=== PATIENT | male | born 1945 | race Caucasian/White ===

== ENCOUNTER 2021-02-09 00:52 | Day surgery (SDC) | payer MEDICARE, SELFPAY ==
[2021-01-22 14:52] VITALS: BMI 29.0
--- NOTE | 2021-02-06 18:28 | P.PNAN_ITS ---
Anes - Initial Pre Proc Eval Procedure: Operation Date: 02/09/21 11:00 Proposed Procedures p Screening Colonoscopy - Luis Sherwood MD Date/Time: 02/06/21 18:28 Surgeon: Luis Sherwood MD Pre Op Diagnosis: hx of colon polyps Patient Data Age: 75 Gender: M Height: 1.78 m Weight: 91.8 kg Allergies Allergy/AdvReac Type Severity Reaction Status Date / Time ROHITH Inhibitors Allergy Unknown Swelling Verified 02/09/21 09:54 of Lip/Tongue/Throat Home Medications Medication Instructions Recorded Confirmed Type amlodipine 10 mg PO DAILY 01/22/21 01/22/21 History aspirin 81 mg PO DAILY 01/22/21 01/22/21 History atorvastatin 20 mg PO DAILY 01/22/21 01/22/21 History carvedilol 6.25 mg PO DAILY 01/22/21 01/22/21 History carvedilol 12.5 mg PO HS 01/22/21 01/22/21 History hydrochlorothiazide 12.5 mg PO DAILY 01/22/21 01/22/21 History lorazepam 0.5 mg PO TID PRN 01/22/21 01/22/21 History omeprazole 20 mg PO DAILY 01/22/21 01/22/21 History Patient hx anesthesia problems: none Family hx anesthesia problems: none Results Review: All pre-operative results and documents have been reviewed as part of the pre-operative evaluation. [facility] Past Medical History Medical History (Updated 02/06/21 @ 18:29 by Segundo Álvarez DO) Anxiety Diabetes type 2, controlled GERD (gastroesophageal reflux disease) Hyperlipidemia Hypertension Surgical History Surgical History (Updated 02/06/21 @ 18:29 by Segundo Álvarez DO) History of cholecystectomy History of prostatectomy History of tonsillectomy Social History Social History Smokeless tobacco user: chewing tobacco Substance use type: does not use Living arrangements: with family Spiritual care concerns: No Anes - Eval Final PreProcedure Day of Procedure 02/06/21 18:28 Patient weight: overweight Heart: regular rate and rhythm Lungs: clear to auscultation and normal air movement Airway: Mallampati scale class II Neurological: alert and oriented Last oral intake: >/= 8 hours ASA classification: III Emergent: no Anesthetic plan: proceed Anesthesia type and monitoring: general GIVS and standard monitoring Results Review: All pre-operative results and documents have been reviewed as part of the pre-operative evaluation. Informed Consent: The patient's anesthetic plan and its attendant risks and benefits were discussed with the patient/family/POA. Questions were solicited and answers provided to the satisfaction of the patient/family/POA.
[2021-02-09 09:56] VITALS: BP 153/78; PULSE 47; RESP 18; TEMP 36.1; O2SAT 99; BMI 28.8
[2021-02-09 10:09] LABS: Glucose Point of Care 102 mg/dl (65-105)
[2021-02-09] MEDS: LACTATED RINGERS 1,000 ML 150 ML IV CONT (10:09)
--- NOTE | 2021-02-09 10:25 | PM.HPGS ---
History of Present Illness History of Present Illness Consent: Risks, benefits, and alternatives have been discussed and questions answered. Patient agrees to proceed with procedure. Chief complaint: hx of colon polyps Narrative: Marcial Gardner is a 75 year old male with a history of colon polyps here for colon cancer screening Review of Systems Review of Systems: All systems reviewed & are unremarkable except as noted in HPI and below PMFSH Past Medical History Medical History Anxiety Diabetes type 2, controlled GERD (gastroesophageal reflux disease) Hyperlipidemia Hypertension Surgical History Surgical History History of cholecystectomy History of prostatectomy History of tonsillectomy Social History Social History Smokeless tobacco user: chewing tobacco Substance use type: does not use Living arrangements: with family Spiritual care concerns: No Meds Home Medications and Allergies Home Medications Medication Instructions Recorded Confirmed Type amlodipine 10 mg PO DAILY 01/22/21 01/22/21 History aspirin 81 mg PO DAILY 01/22/21 01/22/21 History atorvastatin 20 mg PO DAILY 01/22/21 01/22/21 History carvedilol 6.25 mg PO DAILY 01/22/21 01/22/21 History carvedilol 12.5 mg PO HS 01/22/21 01/22/21 History hydrochlorothiazide 12.5 mg PO DAILY 01/22/21 01/22/21 History lorazepam 0.5 mg PO TID PRN 01/22/21 01/22/21 History omeprazole 20 mg PO DAILY 01/22/21 01/22/21 History Allergies Allergy/AdvReac Type Severity Reaction Status Date / Time ROHITH Inhibitors Allergy Unknown Swelling Verified 02/09/21 09:54 of Lip/Tongue/Throat Vital Signs Vital Signs - 24 hr 02/09/21 09:56 Temperature 36.1 C L Pulse Rate 47 L Respiratory Rate 18 Blood Pressure 153/78 H Pulse Oximetry 99 Exam Resp: Auscultation: clear to auscultation bilaterally Cardio: Rate: regular rate Rhythm: regular rhythm GI: GI Palp: Yes Soft to palpation and No Tenderness to palpation present (GI) Assessment and Plan Assessment and plan (1) Colon cancer screening: Code(s): Z12.11 - Encounter for screening for malignant neoplasm of colon Status: Acute Assessment and Plan: Colonoscopy with possible biopsy or polypectomy or cautery or injection of substances.
[2021-02-09 10:51] VITALS: BP 107/58; PULSE 45; RESP 15; O2SAT 98
[2021-02-09 11:01] VITALS: BP 122/67; PULSE 42; RESP 21; O2SAT 99
[2021-02-09 11:11] VITALS: BP 126/64; PULSE 46; RESP 20; O2SAT 100
== END 2021-02-09 11:16 | disposition home or self-care (01) ==
PROVIDERS: PCP Internal Medicine; Visit Provider Internal Medicine Gastroenterology
PROC: 0DJD8ZZ Inspection of Lower Intestinal Tract, Via Natural or Artificial Opening Endoscopic (ICD-10-PCS; CPT 45378; principal; 2021-02-09 11:00)
DX: Z12.11 Encounter for screening for malignant neoplasm of colon (principal); Z86.010 Personal history of colon polyps; F41.9 Anxiety disorder, unspecified; E11.9 Type 2 diabetes mellitus without complications; K21.9 Gastro-esophageal reflux disease without esophagitis; I10 Essential (primary) hypertension; E78.5 Hyperlipidemia, unspecified; Z79.82 Long term (current) use of aspirin; F17.220 Nicotine dependence, chewing tobacco, uncomplicated
CPT/HCPCS: G0105; 82948; J2704; J7120